=== PATIENT | male | born 1960 | race Caucasian/White ===

== ENCOUNTER → 2017-04-14 | Outpatient (CLI) | payer OTHER ==
--- NOTE | 2017-04-14 17:30 | PCVCIMAG ---
APPROVED REPORT Study performed: 04/14/2017 15:45:47 EXAM: Comprehensive 2D, Doppler, and color-flow Echocardiogram Patient Location: Echo lab Room #: 2Status: routine BSA: 2.04 HR: 66 bpmBP: 132/94 mmHg Rhythm: NSR Risk Factors: Cardiac Risk Factors: HTN, Hyperlipidemia, FAMILY hX EARLY ONSET CAD Indications Dyspnea Hypertension/HDD 2D Dimensions LVEF(%): 67.92 (>50%) IVSd: 9.15 (7-11mm)LVOT Diam: 22.12 (18-24mm) LVDd: 42.45 mm PWd: 8.45 (7-11mm)Ascending Ao: 29.89 (22-36mm) LVDs: 26.52 (25-40mm) Left Atrium: 32.53 (27-40mm) Aortic Root: 24.39 mm LV Single Plane 4CH: 58.98 % LV Single Plane 2CH: 59.31 %Roldan's LVEF: 59.15 % Biplane EF: 58.4 % Volumes Left Atrial Volume (Systole) Single Plane 4CH: 41.39 mLSingle Plane 2CH: 36.04 mL Biplane LA Volume: 39.00 mLLA ESV Index: 19.00 mL/m2 Aortic Valve AoV Peak Jose Eduardo.: 1.08 m/s AO Peak Gr.: 4.64 mmHgLVOT Max P.60 mmHg LVOT Max V: 0.81 m/s TARAH Vmax: 2.88 cm2 Mitral Valve E/A Ratio: 1.0 MV Decel. Time: 185.06 ms MV E Max Jose Eduardo.: 0.57 m/s MV A Jose Eduardo.: 0.57 m/s IVRT: 83.04 ms TDI E/Lateral E': 9.50E/Medial E': 8.14 Medial E' Jose Eduardo.: 0.07 m/s Lateral E' Jose Eduardo.: 0.06 m/s Pulmonary Valve PV Peak Gr.: 2.75 mmHg Pulmonary Vein P Vein S: 0.49 m/sP Vein A: 0.24 m/s P Vein D: 0.44 m/sP Vein A Dur.: 69.2 msec P Vein S/D Ratio: 1.11 Tricuspid Valve TR Peak Jose Eduardo.: 2.18 m/s TR Peak Gr.: 19.03 mmHg TV Vmax: 0.52 m/sPA Pressure: 26.00 mmHg Left Ventricle The left ventricle is normal size. There is normal LV segmental wall motion. There is normal left ventricular wall thickness. Left ventricular systolic function is normal. The left ventricular ejection fraction is within the normal range. LVEF is 55-60%. The left ventricular diastolic function is normal. Right Ventricle The right ventricle is normal size. The right ventricular systolic function is normal. Atria The left atrium size is normal. The right atrium size is normal. Aortic Valve The aortic valve is normal in structure. No aortic regurgitation is present. There is no aortic valvular stenosis. Mitral Valve The mitral valve is normal in structure. There is no mitral valve regurgitation noted. No evidence of mitral valve stenosis. Tricuspid Valve The tricuspid valve is normal in structure. Trace to mild tricuspid regurgitation with a PA pressure of 26 mmHg. Normal PA pressure. Pulmonic Valve The pulmonary valve is normal in structure. There is no pulmonic valvular regurgitation. Great Vessels The aortic root is normal in size. The ascending aorta is normal in size. IVC is normal in size and collapses with >50% inspiration Pericardium There is no pericardial effusion. There is no pleural effusion. <Conclusion> Left ventricular systolic function is normal. There is normal LV segmental wall motion. LVEF 55-60%. Normal diastolic function The aortic valve is normal in structure. No aortic regurgitation or stenosis The mitral valve is normal in structure. No mitral valve regurgitation noted. Pulmonary artery pressure of 25mmHg There is no pericardial effusion.
--- NOTE | 2017-04-14 17:35 | PCVCIMAG ---
APPROVED REPORT Patient Location: Echo lab- TREADMILL STRESS TEST Room #: 2 Stress Nurse: Elizabeth Ernandez RN INDICATIONS: dyspnea on exertion,hypertension,dyslipidemia,family history of early onset CAD The patient exercised according to the [employer] Protocol for 13:04 minutes, achieving a maximum work level of 17.2 METS. The resting heart rate of 82 bpm, calos to a maximal level of 184 bpm. This value represents 113% of the maximal, age-predicted heart rate. The resting blood pressure of 132/94 mmHg, calos to a maximum blood pressure of 200/88 mmHg. The exercise was stopped due to fatigue. The stress electrocardiogram demonstrated rare, isolated PVC's. No diagnostic ischemic electrocardiographic changes. Conclusion 1. Maximal treadmill stress negative for angina, significant dysrhythmias, or diagnostic electrocardiographic changes. 2. This study was associated with good exercise capacity (17.2 METS)
== END | disposition home or self-care (01) ==
LOC: PCVCIMAG 16:22
PROVIDERS: ATTEND Internal Medicine
DX: I10 Essential (primary) hypertension (principal); R06.00 Dyspnea, unspecified; E78.5 Hyperlipidemia, unspecified; Z82.49 Family history of ischemic heart disease and other diseases of the circulatory system
CPT/HCPCS: 93005; 93017; 93306